=== PATIENT | female | born 1975 | race Caucasian/White ===

== ENCOUNTER 2021-08-19 14:17 | Outpatient (REF) | payer BC, SELFPAY ==
--- NOTE | 2021-08-19 13:30 | PAPFT_PTH ---
PATIENT: Jessika Babin LOC: [facility]#:[id number] AGE/SX: 45/F ROOM: RE08/19/[address]: Mo Harp : 1975 BED: DIS: 08/19/2021 SPEC #: [id number] RECD: 08/20/21 12:57 STATUS: EL REQ #: [id number] RTACY: 08/19/21 13:[address]: Mo Harp DEPT: [facility] Cytology RECD BY: Caitlin Blanton ENTERED: 08/20/21 12:58 SP TYPE: PAPFT OTHR DR: Derick Lee Tissues: 1 - CX/ENDOCX FOR PAP SMEARS Procedures: PAP THIN PREP/[facility] Screening HPV DNA PROBE Comments: [id number]
== END 2021-08-19 14:18 | disposition home or self-care (01) ==
LOC: NCHCN 14:17
PROVIDERS: PCP Internal Medicine; Visit Provider Family Medicine
DX: Z00.00 Encounter for general adult medical examination without abnormal findings (principal); Z12.4 Encounter for screening for malignant neoplasm of cervix; Z11.51 Encounter for screening for human papillomavirus (HPV)
CPT/HCPCS: 88142; 87624

== ENCOUNTER 2024-05-08 13:11 | Outpatient (REF) | payer BC, SELFPAY ==
[2024-05-08 17:00] LABS: BUN 10 mg/dL (7-18); CREATININE 0.6 mg/dL (0.55-1.02); Calcium 9.3 mg/dL (8.5-10.1); Calculated LDL 86 mg/dL (<100); Chloride 105 mmol/L (98-107); Cholesterol 193 mg/dL (<200); Estimated GFR 112.04 (mL/min/1.73m2); Glucose 95 mg/dL (74-106); HDL Cholesterol 84 mg/dL (40-60); Potassium 4.5 mmol/L (3.5-5.1); Sodium 139 mmol/L (136-145); Triglyceride 118 mg/dL (<150); Vitamin D 25 Total 26.7 ng/mL (30-100)
== END 2024-05-08 13:12 | disposition home or self-care (01) ==
LOC: NCHCN 13:11
PROVIDERS: PCP Family Medicine; Visit Provider Family Medicine
DX: Z00.00 Encounter for general adult medical examination without abnormal findings (principal); E55.9 Vitamin D deficiency, unspecified; Z13.220 Encounter for screening for lipoid disorders; Z13.228 Encounter for screening for other metabolic disorders
CPT/HCPCS: 80048; 80061; 82306